=== PATIENT | female | born 1980 | race Caucasian/White ===

== ENCOUNTER 2017-06-12 19:33 | Emergency (ER) | payer OTHER ==
[~2017-06-12] VITALS: Ht 170.2 cm; Wt 90.7 kg
[~2017-06-12 19:33] MED LIST: ALEVE220 MG PO; DAY TIME COLD-1 EAC1 PO; IBUPROFEN800 MG PO; INDERAL XL80 MG PO; LABETALOL HCL100 MG PO; LISINOPRIL10 MG PO; MELOXICAM15 MG PO; NORCO 5-325 TA1 EACH PO; NORCO 7.5-3251 EACH PO; NYQUIL D COLD295 ML PO; PREDNISONE10 MG PO; PRENATAL 19 TA1 EAC1 PO; ULTRAM50 MG PO; VENTOLIN HFA18 GM INH; ZANTAC 7575 MG PO
[2017-06-12] MEDS ORDERED: PENICILLIN V P500 MG PO (19:51)
[2017-06-12] MEDS ORDERED: CLINDAMYCIN HC300 MG PO (21:01)
== END 2017-06-12 21:10 | disposition home or self-care (01) ==
LOC: ED 19:33
DX: K04.7 Periapical abscess without sinus (principal); T36.0X5A Adverse effect of penicillins, initial encounter; I10 Essential (primary) hypertension; F15.10 Other stimulant abuse, uncomplicated; D72.829 Elevated white blood cell count, unspecified; F17.200 Nicotine dependence, unspecified, uncomplicated; Z90.49 Acquired absence of other specified parts of digestive tract; Z79.2 Long term (current) use of antibiotics; Z91.14 Patient's other noncompliance with medication regimen
CPT/HCPCS: 80053; 85025; 99284; Q0163